=== PATIENT | male | born 1985 | race Caucasian/White ===

== ENCOUNTER 2016-08-26 14:12 | Emergency (ER) | payer OTHER ==
[~2016-08-26] VITALS: Ht 180.3 cm; Wt 96.4 kg
[~2016-08-26 14:12] MED LIST: CHOL500050 PO; HYDR12.5 PO; OMEP20CA11 PO
[2016-08-26 14:29] VITALS: BP 142/94; PULSE 82; RESP 16; O2SAT 97
[2016-08-26] MEDS ORDERED: 0.9% Sodium Chloride 1,000 ML IV ONE (15:04)
[2016-08-26] MEDS ORDERED: Ondansetron 2 mg/mL 2 mL Inj IVPUSH ONE (15:05)
--- NOTE | 2016-08-26 15:06 | ED.REPORT ---
HPI-Abd Pain M Under 40 Date of Service Aug 26, 2016 ED Provider: Fidel Hess MD A 31 year old male with no significant past medical history presents to the ED with lower abdominal pain onset yesterday morning. The pain is "sharp" and "stabbing" in nature, relieved with palpitation. Associated symptoms include nausea, vomiting (yesterday and x1 today), and subjective fever. The patient denies diarrhea, melena, hematochezia, constipation, dysuria, testicular pain, pain with BM, or other symptoms. He has no ill contacts. Nursing Notes Stated Complaint: LOWER STOMACH PAIN Chief Complaint: Male Abdominal Pain Nursing Notes Reviewed: Yes Allergies: Coded Allergies: No Known Allergies (Verified Allergy, Unknown, 11/15/15) Scheduled Cholecalciferol (Vitamin D3) (Vitamin D) 50,000 Unit Capsule 50,000 UNIT PO DAILY Hydrochlorothiazide (Hydrochlorothiazide) 12.5 Mg Capsule 12.5 MG PO DAILY Omeprazole (Omeprazole) 20 Mg Capsule.dr 20 MG PO DAILY Scheduled PRN Ondansetron ODT (Zofran ODT) 4 Mg Tablet 4 MG PO Q4H PRN PRN For Nausea General Time Seen by MD: 15:03 Chief Complaint Abdominal pain Hx Obtained From: Patient Arrived By: Walk-in Sudden in Onset?: Yes Onset Occurred: Yesterday (Morning) Symptom Duration: Since onset Location: : Abdomen lower Quality: Painful Severity: Current: Moderate Severity: Maximum: Moderate Associated with: Reports: Fever, Nausea, Vomiting, Denies: Constipation, Diarrhea, Hematochezia, Melena Pertinent Negative: Relieved by nothing Recent Healthcare: No recent doctor visit Past Medical History Past Medical History L5-S1 bulged disc Colitis Past Surgical History Vasectomy Hernia Surgery Family History Noncontributory Smoking History Never Smoker Social History Alcohol Use: Denies alcohol use Drug Use: Denies drug use Other Social History: Good social support, Local resident 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 Ambulatory Status Independent Review of Systems Review of Systems Note: - Pain with BM Constitutional: Reports: Fever (Subjective) Respiratory: Denies: Non-productive cough, Shortness of breath GI: Reports: Abdominal pain (Lower), Nausea, Vomiting, Denies: Constipation, Diarrhea, Hematochezia, Melena Male: Denies Dysuria, Denies Testicular pain Complete sys rev & neg: except as marked. Physical Exam Initial Vital Signs Vital Signs (First) Date Time Temp Pulse Resp B/P Pulse Ox O2 Delivery O2 Flow Rate FiO2 08/26/16 14:29 36.8 82 16 142/94 97 Room Air Initial VS: Reviewed Head / Eyes: Atraumatic, Normocephalic Skin: Warm, Dry Neurologic: Alert, Oriented, Nonfocal Psychiatric: Mood/affect normal, Behavior normal, Normal thought content General/Constitutional: Awake, Alert Respiratory / Chest: Breath sounds NL, Breath sounds = bilat, No respiratory distress Cardiovascular: Heart rate NL, Regular rhythm, Heart sounds NL, No gallop, No murmurs, No rubs, Peripheral circulation NL (Good distal pulses) Abdomen: Soft (To palpation in all four quadrants), Non-tender, No distention Back: Non-tender, No CVA tenderness Male Genitourinary: Atraumatic, Penis NL (Circumcised), Testes NL (No swelling) Lower Extremity / Pelvis / MS: Inspection NL, No swelling, Non-tender Interpretation & Diagnostics Lab Results Interpretation Result Diagram: 08/26/16 1520 08/26/16 1520 Test 08/26/16 15:20 08/26/16 15:37 White Blood Count 7.5th/mm3 (3.8-10.1) Red Blood Count 5.18mil/mm3 (4.40-5.80) Hemoglobin 15.1g/dL (13.8-17.2) Hematocrit 44.3% (41.0-50.0) Mean Corpuscular Volume 85.5fL (81-100) Mean Corpuscular Hemoglobin 29.2pg (27.0-35.0) Mean Corpuscular Hemoglobin Concent 34.1% (32.0-37.0) Red Cell Distribution Width 12.8% (12.3-15.4) Platelet Count 266bil/L (150-400) Neutrophils (%) (Auto) 48.9% (40-74) Lymphocytes (%) (Auto) 39.0% (14-46) Monocytes (%) (Auto) 9.2% (4-12) Eosinophils (%) (Auto) 2.4% (0-5) Basophils (%) (Auto) 0.4% (0-3) Sodium Level 141mEq/L (134-144) Potassium Level 4.0mEq/L (3.5-5.2) Chloride Level 104mEq/L (97-108) Carbon Dioxide Level 25mmol/L (18-29) Blood Urea Nitrogen 13mg/dL (6-20) Creatinine 0.78mg/dL (0.76-1.27) Estimat Glomerular Filtration Rate 122mL/min (>59) Glucose Level 89mg/dL (60-99) Calcium Level 10.2mg/dL (8.5-10.1) Magnesium Level 2.1mg/dL (1.6-2.6) Total Bilirubin 0.4mg/dL (0.0-1.2) Aspartate Amino Transf (AST/SGOT) 15U/L (0-50) Alanine Aminotransferase (ALT/SGPT) 14U/L (0-44) Alkaline Phosphatase 59U/L (25-150) Total Protein 7.4g/dL (6.4-8.4) Albumin 4.4g/dL (3.4-5.0) Lipase 45U/L (13-60) Urine Color Yellow (YELLOW) Urine Appearance Clear (CLEAR,HAZY) Urine pH 6.5 (5.0-8.0) Urine Specific [place] 1.020 (1.003-1.035) Urine Protein Negativemg/dL (NEG,TRACE) Urine Glucose (UA) Negativemg/dL (NEGATIVE) Urine Ketones Negativemg/dL (NEGATIVE) Urine Occult Blood Negative (NEGATIVE) Urine Nitrite Negative (NEGATIVE) Urine Bilirubin Negative (NEGATIVE) Urine Urobilinogen Normalmg/dL (NORMAL) Urine Leukocyte Esterase Negative (NEGATIVE) Urine RBC 0-2/hpf (0-2) Urine WBC 0-5/hpf (0-5) Urine Epithelial Cells Occasional/hpf (NONE-MOD) Urine Crystals None seen (NONE SEEN) Urine Bacteria None/hpf (NONE-FEW) Urine Hyaline Casts None/lpf (NONE) Urine Granular Casts None seen (NONE SEEN) Urine Waxy Casts None seen (NONE SEEN) Urine Red Blood Cell Casts None seen (NONE SEEN) Urine White Blood Cell Casts None seen (NONE SEEN) Urine Mucus None seen (None Seen) Urine Trichomonas None seen (NONE SEEN) Urine Yeast None (NONE SEEN) Urine Culture Reflexed Not indicated CT Abd / Pelvis Interpretation IMPRESSION: 1. Mild to moderate thickening of the wall of the distal colon at the junction of the descending and sigmoid colon is suspicious for colitis. No definite diverticula are present. 2. Mild prominence of the wall of the terminal ileum is nonspecific and may be related to incomplete distention. However, given the prominence of the wall of the descending colon and proximal sigmoid colon, clinical correlation is recommended to exclude the possibility of chronic inflammatory bowel disease, such as Crohn's disease. The need for further evaluation utilizing colonoscopy should be based on clinical grounds. 3. No bowel obstruction. 4. Left posterior costophrenic angle pulmonary nodule versus atelectasis. Three-month followup CT of the chest with contrast is recommended. Dictated by: Kieran Ceja M.D. on 08/26/2016 at 15:38 Study type: Abdominal CT IV contrast Interpretation / Wet Read by: Interpret - Radiologist Re-Eval/Medical Decision Med Decision/Clinical Course A 31 year old male with no significant past medical history who presents to the ED with lower abdominal pain onset yesterday morning. The pain is "sharp" and "stabbing" in nature, relieved with palpitation. Associated symptoms include nausea, vomiting (yesterday and x1 today), and subjective fever. The patient denies diarrhea, melena, hematochezia, constipation, dysuria, testicular pain, pain with BM, or other symptoms. He has no ill contacts. Here the emergency department the patient is afebrile, hemodynamically stable and in no apparent distress. Examination as above. Patient was treated with IV fluids, Zofran for nausea and hydromorphone for pain. Serial abdominal examinations remained relatively benign. Laboratory studies notable as below: CBC unremarkable CMP unremarkable Urinalysis unremarkable Abdominal CT: IMPRESSION: 1. Mild to moderate thickening of the wall of the distal colon at the junction of the descending and sigmoid colon is suspicious for colitis. No definite diverticula are present. 2. Mild prominence of the wall of the terminal ileum is nonspecific and may be related to incomplete distention. However, given the prominence of the wall of the descending colon and proximal sigmoid colon, clinical correlation is recommended to exclude the possibility of chronic inflammatory bowel disease, such as Crohn's disease. The need for further evaluation utilizing colonoscopy should be based on clinical grounds. 3. No bowel obstruction. 4. Left posterior costophrenic angle pulmonary nodule versus atelectasis. Three-month followup CT of the chest with contrast is recommended. Overall presentation somewhat vague. CT as above demonstrates findings of colitis however his presentation is not suggestive of infectious colitis and he has no diarrhea. No history of inflammatory bowel disease though this does remain a possibility. Abdominal examination is benign on serial reassessments. No findings suggestive of renal colic. No evidence of testicular torsion, epididymitis or urinary tract infection. No findings suggestive of acute surgical abdominal process, peritonitis, bowel obstruction or appendicitis. I feel the patient is appropriate for discharge. He will follow up with GI on an outpatient basis to consider colonoscopy. Prescribed Zofran for nausea. Prior to discharge follow-up and return precautions were reviewed in detail with the patient who verbalized understanding and agreement with the plan. The patient was discharged in stable condition. Source of Hx: Old records Re-Evaluation/Progress : Time of Eval: 17:00 Patient Status: Condition improved Re-Evaluation/Progress Note: Discussed with patient CT and lab results, diagnosis, and plan for discharge. Follow-up and return to the ER instructions given. Patient agrees with plan for care and all questions were addressed. Counseled Regarding: Diagnosis, Lab results, Need for follow-up, When/why to return to ED Patient Discharge & Departure Primary Impression: Colitis Additional Impressions: Generalized abdominal pain Nausea and vomiting Vomiting type: unspecified Vomiting Intractability: unspecified Qualified Code: R11.2 - Nausea with vomiting, unspecified Disposition: Home Discharge Condition All VS Reviewed: Yes Condition: Improved Patient Instructions: Acute Abdominal Pain (ED) Additional Instructions: Thank you for seeking care at the emergency room. It is difficult for us to make definitive diagnoses in the ED but we believe that you are experiencing colitis. Your CT showed mild inflammation of your colon. This may explain the vague abdominal pain you are experiencing. Our primary goal today in the ED was to evaluate you for any life-threatening conditions. Your evaluation was reassuring. You will be discharged with a prescription for Zofran. Use Zofran as prescribed for nausea. Use Tylenol as directed for abdominal pain. You should follow-up with a operator electronic warfare as directed. You should return to the ED immediately if you develop bloody stool, vomiting, worsening abdominal pain, or any other concerning signs or symptoms. Thank you for letting us partake in your care today. Referrals: Stephany Dunn (PCP) Parveen Londono MD Attestation Portions of this note were transcribed by Saray Bui. I, Dr. Hess, personally performed the history, physical exam, and medical decision-making; I reviewed and confirmed the accuracy of the information in the transcribed note. Signed by: Filiberto Rubio, 08/26/2016, 18:45 copies to: Stephany Dunn; Parveen Londono MD, Beck O MD Aug 26, 2016 15:06 SARAY BUI Aug 26, 2016 15:23
[2016-08-26] MEDS: HYDROmorphone 0.5 mg/0.5 mL iSecure Syringe IVPUSH PRN ×2 (15:32→16:09)
[2016-08-26 15:35] LABS: BASOPHILS % (AUTO) 0.4 % (0-3); EOSINOPHILS % (AUTO) 2.4 % (0-5); MONOCYTES % (AUTO) 9.2 % (4-12); Mean Corpuscular Hemoglobin 29.2 pg (27.0-35.0); Mean Corpuscular Volume 85.5 fL (81-100); NEUTROPHILS % (AUTO) 48.9 % (40-74); Platelet Count 266 bil/L (150-400)
[2016-08-26 16:06] LABS: APPEARANCE,URINE CLEAR (CLEAR,HAZY); COLOR,URINE YELLOW (YELLOW); OCCULT BLOOD,URINE NEGATIVE (NEGATIVE); PH,URINE 6.5 (5.0-8.0); UROBILINOGEN,URINE NORMAL (NORMAL)
[2016-08-26 16:08] LABS: Magnesium 2.1 mg/dL (1.6-2.6)
--- NOTE | 2016-08-26 16:47 | DRSVH ---
PROCEDURE: CT ABDOMEN AND PELVIS WITH CONTRAST ([id number]) INDICATIONS: LLQ pain, diverticulitis? TECHNIQUE: After the administration of intravenous contrast, 5 mm thick sections acquired from the diaphragm to the symphysis. 5 mm coronal and sagittal reformats were acquired. For radiation dose reduction, the following was used: automated exposure control, adjustment of mA and/or kV according to patient fernie bradley. COMPARISON: [facility], CT, CT ABD PELVIS W CON, 08/13/2015, 10:51. FINDINGS: Image quality: Diagnostic. ABDOMEN FINDINGS: Lung bases: Mild scarring versus atelectasis is noted within the lung bases. There is a focal rounde d area of consolidation within the posterior costophrenic angle on the left that measures up to appro ximately 1.1 cm in diameter (image 11, series 2). No pleural effusions are evident. The heart is no rmal in size without a pericardial effusion. Solid organs: The liver, spleen, pancreas, and adrenals have a normal appearance. The kidneys are un remarkable. Peritoneum and bowel: The stomach, duodenum, and remainder of the small bowel loops are within normal limits. No significant small bowel dilatation is identified. Moderate residual stool is identified throughout the colon. There is no evidence to suggest an acute bowel obstruction. Mild prominence of the wall of the terminal ileum is evident without surrounding inflammation, which may be related t o incomplete distention. There also is prominence of the wall of the descending colon with questiona ble early fatty infiltration. At the junction of the descending colon and sigmoid colon there is mor e focal prominence of the wall of the colon (image 76, series 2) with mild edema noted within the stacey rounding mesentery.The appendix is well-visualized and normal. There is no free fluid, loculated fluid collection, or free air within the abdomen. Nodes and vessels: No retroperitoneal or mesenteric adenopathy. The abdominal aorta is normal in co urse and caliber. Bones: Image osseous structures of the abdomen are within normal limits and age appropriate. No susp icious osseous lesion is evident. PELVIS FINDINGS: Genitourinary: The urinary bladder wall is normal in thickness. The distal ureters are nondilated. The prostate is borderline prominent in size. Other soft tissues: No free fluid or loculated fluid collection is present within the pelvis. There is no pelvic lymphadenopathy. No definite inguinal hernia is present. Bones: Image osseous structures of the pelvis are unremarkable. IMPRESSION: 1. Mild to moderate thickening of the wall of the distal colon at the junction of the descending and sigmoid colon is suspicious for colitis. No definite diverticula are present. 2. Mild prominence of the wall of the terminal ileum is nonspecific and may be related to incomplete distention. However, given the prominence of the wall of the descending colon and proximal sigmoid colon, clinical correlation is recommended to exclude the possibility of chronic inflammatory bowel d isease, such as Crohn's disease. The need for further evaluation utilizing colonoscopy should be bas ed on clinical grounds. 3. No bowel obstruction. 4. Left posterior costophrenic angle pulmonary nodule versus atelectasis. Three-month followup CT o f the chest with contrast is recommended. Dictated by: Kieran Ceja M.D. on 08/26/2016 at 15:38 Approved by: Kieran Ceja M.D. on 08/26/2016 at 15:45
[2016-08-26] MEDS ORDERED: ONDA4TAB9 PO (17:09)
[2016-08-26 17:11] VITALS: BP 119/80; PULSE 70; RESP 16; O2SAT 98
[2016-08-26 17:18] VITALS: BP 119/80; PULSE 70; RESP 16; O2SAT 98
== END 2016-08-26 17:19 | disposition home or self-care (01) ==
LOC: SED 14:12
DX: K52.9 Noninfective gastroenteritis and colitis, unspecified (principal); R11.2 Nausea with vomiting, unspecified
CPT/HCPCS: 36415; 74177; 80053; 81000; 83690; 83735; 85025; 96361; 96374; 96375; 96376; 99285; J1170; J2405; J7030; Q9967